=== PATIENT | female | born 1990 | race Caucasian/White ===

== ENCOUNTER 2018-05-29 05:43 | Day surgery (SDC) | payer OTHER ==
[~2018-05-29] VITALS: Ht 175.3 cm; Wt 79.4 kg
[2018-05-29] VITALS (12 sets, daily range): BP systolic 115–131; BP diastolic 62–84
[~2018-05-29 05:43] MED LIST: NKM
[2018-05-29] MEDS ORDERED: celeBREX 200mg Cap **SURGERY PATIENTS ONLY ORAL ONE (06:00)
[2018-05-29] MEDS ORDERED: oxyCONTIN 20mg tab ORAL ONE (06:00)
[2018-05-29] MEDS ORDERED: ceFAZolin 1gm IVPB IVPB ONE ×2 (06:00)
[2018-05-29] MEDS ORDERED: Bacitracin 50000 Units Vial ONE (06:32)
[2018-05-29] MEDS ORDERED: Lidocaine 1% 10mg/ml/EPI 0.01mg/ml 50ml INJ ONE (06:32)
[2018-05-29] MEDS ORDERED: Lidocaine 1% Plain 30 ml INJ ONE (06:32)
[2018-05-29] MEDS ORDERED: Bupivacaine w/Epi 0.5% 30ml Vial INJ ONE (06:32)
[2018-05-29] MEDS ORDERED: Bupivacaine 0.25% Inj 30ml INJ ONE (06:46)
[2018-05-29] MEDS ORDERED: Zemuron 50mg/5ml Inj IV ONE (06:47)
[2018-05-29] MEDS ORDERED: fentaNYL 100 mcg/2 mL IV ONE (06:55)
[2018-05-29] MEDS ORDERED: NS Irrig 1000ml ONE (07:00)
[2018-05-29] MEDS ORDERED: LR 1000ml ONE (07:00)
[2018-05-29] MEDS ORDERED: Sterile Water Irrig 1000ml IRRIG ONE (07:00)
[2018-05-29] MEDS ORDERED: Norco 5mg/325mg tab ORAL PRN (07:15)
[2018-05-29] MEDS ORDERED: Midazolam 2mg/2ml Inj ONE (07:15)
[2018-05-29] MEDS ORDERED: Tylenol #3 tab (300mg/30mg) ORAL PRN (07:15)
[2018-05-29] MEDS ORDERED: D5 1/2NS 1,000 ML IV SCH (07:15)
[2018-05-29] MEDS ORDERED: HYDROmorphone 1mg/ml Carpuject SUBQ PRN (07:15)
--- NOTE | 2018-05-29 07:16 | Operative Note - PDOC ---
Operative Note Operative Note Pre-op Diagnosis: left cubital tunnel syndrome Procedure: see op report Post-op Diagnosis: same as pre-op plus Operative Findings: consistent w/pre-op dx studies Anesthesia: MAC Specimen: none Complications: none Condition: stable Estimated Blood Loss: none Implant(s) used?: No Chris Pedraza MD May 29, 2018 07:16
--- NOTE | 2018-05-29 07:16 | Pre-Procedure Note/Attestation ---
Pre-Procedure Note/Attestation Complete Prior to Procedure Planned Procedure: left Procedure Narrative: cubital tunnel release Indications for Procedure Pre-Operative Diagnosis: left cubital tunnel syndrome Attestation I attest that I discussed the nature of the procedure; its benefits; risks and complications; and alternatives (and the risks and benefits of such alternatives ), prior to the procedure, with the patient (or the patient's legal textile machinery sales representative). I attest that, if there was a reasonable possibility of needing a blood transfusion, the patient (or the patient's legal textile machinery sales representative) was given the [facility] standardized written summary, pursuant to the [employer] Blood Safety Act ([place] Health and Safety Code # 1645, as amended). I attest that I re-evaluated the patient just prior to the surgery and that there has been no change in the patient's H&P, except as documented below: Chris Pedraza MD May 29, 2018 07:16
[2018-05-29] MEDS ORDERED: Lidocaine 1% MPF 10mg/ml 5ml ONE (07:33)
[2018-05-29] MEDS ORDERED: Ropivacaine 5mg/ml Vial 30ml INJ ONE (07:33)
[2018-05-29] MEDS ORDERED: Metoclopramide 10mg/2ml Inj ONE (07:33)
[2018-05-29] MEDS ORDERED: Propofol 200mg/20ml IV ONE (07:33)
--- NOTE | 2018-05-29 08:07 | Anethesia Preoperative Eval ---
Anesthesia Pre-op PMH/ROS General Date of Evaluation: May 29, 2018 Time of Evaluation: 07:00 Anesthesiologist: marissa ASA Score: ASA 1 Mallampati Score Class I : Soft palate, uvula, fauces, pillars visible Class II: Soft palate, uvula, fauces visible Class III: Soft palate, base of uvula visible Class IV: Only hard plate visible Mallampati Classification: Class II Surgeon: marylu Diagnosis: carpel tunnel syndrome Surgical Procedure: left cubital tunnel release Anesthesia History: none Family History: no anesthesia problems Allergies: Coded Allergies: No Known Allergies (Unverified , 05/28/18) Medications: see eMAR Patient NPO?: Yes NPO Date: May 28, 2018 NPO Time: 23:59 Past Medical History Cardiovascular: Denies: HTN, CAD, ND, valve dz, arrhythmia, other Pulmonary: Denies: asthma, COPD, BUTCH, other Gastrointestinal/Genitourinary: Denies: GERD, CRI, ESRD, other Neurologic/Psychiatric: Denies: dementia, CVA, depression/anxiety, TIA, other Endocrine: Denies: DM, hypothyroidism, steroids, other HEENT: Denies: cataract (L), cataract (R), glaucoma, MORONGO (L), MORONGO (R), other Hematology/Immune: Denies: anemia, DVT, bleeding disorder, other Musculoskeletal/Integumentary: Denies: OA, RA, DJD, DDD, edema, other PSxH Narrative: none Anesthesia Pre-op Phys. Exam Physician Exam Last Vital Signs Date Time Temp Pulse Resp B/P (MAP) Pulse Ox O2 Delivery O2 Flow Rate FiO2 05/29/18 06:48 97.5 71 20 127/82 98 Room Air Constitutional: NAD Neurologic: CN 2-12 intact Cardiovascular: RRR Respiratory: CTA Gastrointestinal: S/NT/ND Airway Exam Mallampati Classification 2 Mallampati Score: Class II MO: full ROM: full Dentures: upper, lower Anesthesia Pre-op A/P Labs Urine Test Test 05/29/18 05:50 Urine HCG, Qualitative Negative (NEGATIVE) Studies Pre-op Studies: EKG - sr Risk Assessment & Plan Plan: general and peripheral block Pre-Antibiotics Drug: ancef Given Within 1 Hr of Incision: Yes Time Given: 07:10 Elba Kessler CRNA May 29, 2018 08:07
[2018-05-29] MEDS ORDERED: fentaNYL 100 mcg/2 mL IV PRN (08:15)
--- NOTE | 2018-05-29 11:38 | 48 Hour Post Anesthesia Eval ---
Post Anesthesia Evaluation Procedure: left cubital tunnel release Date of Evaluation: May 29, 2018 Time of Evaluation: 11:38 Blood Pressure Systolic: 131 0: 62 Pulse Rate: 82 Respiratory Rate: 14 O2 Sat by Pulse Oximetry: 98 Airway: patent Nausea: No Vomiting: No Hydration Status: adequate Cardiopulmonary Status: stable Mental Status/LOC: patient returned to baseline Follow-up Care/Observations: na Post-Anesthesia Complications: none Follow-up care needed: N/A Elba Kessler [facility] May 29, 2018 11:38
--- NOTE | 2018-05-29 11:39 | Immediate Post-Op Evaluation ---
Immediate Post-Op Evalulation Immediate Post-Op Evalulation Procedure: left cubital tunnel release Date of Evaluation: May 29, 2018 Time of Evaluation: 08:43 IV Fluids: 500 Blood Pressure Systolic: 118 Blood Pressure Diastolic: 70 Pulse Rate: 80 Respiratory Rate: 14 O2 Sat by Pulse Oximetry: 98 Temperature (Fahrenheit): 97.8 Pain Score (1-10): 0 Nausea: No Vomiting: No Patient Status: awake, reacts, patent Hydration Status: adequate Drug: ancef Given Within 1 Hr of Incision: Yes Time Given: 07:15 Elba Kessler CRNA May 29, 2018 11:39
--- NOTE | 2018-05-30 02:00 | Operative Note - Dictated ---
DATE OF OPERATION: 05/29/2018 PREOPERATIVE DIAGNOSIS: Traumatic left cubital tunnel syndrome. POSTOPERATIVE DIAGNOSIS: Traumatic left cubital tunnel syndrome. PROCEDURE: In situ cubital tunnel release. SURGEON: Chris Pedraza M.D. ANESTHESIA: Axillary with general. INDICATION FOR PROCEDURE: The patient is a pleasant female with traumatic ulnar neuritis, failed conservative treatment, elected to undergo suture release. Risks, limitations, expectations, and complications of the procedure were discussed in detail. All questions addressed. DESCRIPTION OF PROCEDURE: After informed consent was obtained, the patient was brought to the operating room. The patient was placed under axillary and general anesthesia. Left arm was prepped and draped in a sterile manner. Time-out was performed. Ancef was administered. A cubital tunnel was identified. The skin was marked out. Esmarch used to exsanguinate the extremity. The skin was incised. Subcutaneous tissue was dissected down ligament. The ligament was released under direct visualization to reveal the ulnar nerve. Once the ulnar nerve was identified, proximally a [place] was then in place along the course of the ulnar nerve to create a fascial between the ulnar nerve and the arcade of [place]. Once the ulnar nerve was mobilized, the arcade of [place] was released proximally into the triceps. Once that was completed, attention distally and a [place] was then again used to mobilize the nerve and create a fascial layer between the flexor pronator. Once that was performed, direct visualization was used to release the fascia, releasing the nerve distally. Once that was done, the elbow was taken through a range of motion. There was slight subluxation of the nerve with hyperflexion. At this point, it was felt that the release was adequate. Therefore, the wound was copiously irrigated. The skin was closed using 3-0 Vicryl and 3-0 Monocryl sutures. Steri-Strips and a sterile dressing were applied. The patient was awoken and taken to recovery room with stable vital signs. ESTIMATED BLOOD LOSS: None. COMPLICATIONS: None. SPECIMENS: None. IMPLANTS: None. Chris Pedraza M.D. DR: ARNAV JOB#: [id number] CC:
== END 2018-05-29 10:30 | disposition home or self-care (01) ==
LOC: SUR 05:43
DX: G56.22 Lesion of ulnar nerve, left upper limb (principal); F41.9 Anxiety disorder, unspecified; F12.90 Cannabis use, unspecified, uncomplicated; E66.3 Overweight
CPT/HCPCS: 64718; 81025; J0690; J2250; J2405; J2704; J2765; J2795; J3010; J3490; 94003; 94150